=== PATIENT | male | born 1970 | race African-American/Black ===

== ENCOUNTER 2021-10-05 16:12 | Emergency (ER) | payer OTHER, SELFPAY ==
[2021-10-05] VITALS (23 sets, daily range): BP systolic 167–205; BP diastolic 103–131; PULSE 104–130; RESP 14–33; TEMP 37.2; O2SAT 97–100
--- NOTE | ~2021-10-05 | CT_ITS ---
EXAMINATION: CTA chest PE protocol DATE: 10/05/2021 17:52 INDICATION: eval for PE TECHNIQUE: Computed tomography angiography (CTA) of the chest was performed with 100 mL Omnipaque-350 intravenous contrast timed to evaluate the pulmonary arteries. Coronal maximum intensity projection 3D-reconstructions were created by the technologist. The dose-length product (DLP) was 553.14 mGy-cm. Automated exposure control and iterative reconstruction technique were employed. COMPARISON: X-ray chest, same date. FINDINGS: Study quality: Degraded by beam hardening, abnormal anatomy, and respiratory motion, particularly in the left lower lobe such that subsegmental and non-occlusive segmental emboli could be missed. Pulmonary arteries: No pulmonary emboli detected. Thoracic aorta: Normal. Lung parenchyma and airways: Chronic appearing right medial consolidation. Thoracic inlet, axillae and chest wall: Unremarkable. Mediastinum: Normal. Heart and pericardium: Mitral valve/annulus calcifications. Coronary artery calcifications: Absent. Pleura: Unremarkable. Upper abdomen: No significant finding. Bones: No acute osseous finding. Severe thoracic scoliosis. IMPRESSION: Limited examination as described above. Within those constraints, no central or occlusive segmental e mboli detected. Reviewed, dictated and finalized at location K. IMPRESSION: Limited examination as described above. Within those constraints, no central or occlusive segmental emboli detected.
--- NOTE | ~2021-10-05 | XR_ITS ---
EXAMINATION: XR chest 2V Exam Date/Time: 10/05/2021 16:30 CDT HISTORY: CHEST PAIN X 3 DAYS, NO CARDIAC HX NO LUNG HX Comparison: None available. RESULT: Lines, tubes, and devices: Multiple surgical clips project over the mediastinum and right midlung. Lungs and pleura: Clear. Cardiomediastinal silhouette: Unremarkable. Other: No acute osseous or upper abdominal finding. Severe scoliosis. IMPRESSION: No acute cardiopulmonary process. Reviewed, dictated and finalized at location K.
--- NOTE | 2021-10-05 16:14 | ECG_ITS ---
Measurements Intervals [place] Rate: 129 P: 53 NM: 96 QRS: 37 QRSD: 86 T: 127 QT: 253 QTc: 371 Interpretive Statements SINUS TACHYCARDIA WITH SHORT NM INTERVAL EARLY PRECORDIAL R/S TRANSITION LEFT VENTRICULAR HYPERTROPHY AND ST-T CHANGE MINIMAL Q WAVES- HIGH LATERAL LEADS ST-T WAVE ABNORMALITY IN ANTERIOR LEADS- CONSIDER ISCHEMIA ABNORMAL ECG Electronically Signed On 10-05-2021 21:14:38 CDT by Brian Yoo D.O.
[2021-10-05 16:37] LABS: Basophils Absolute Auto 0.1 K/mm3 (0.0-0.1); Basophils Percent Auto 1.1 % (0.2-1.2); Eosinophils Absolute Auto 0.1 K/mm3 (0-0.3); Eosinophils Percent Auto 2.2 % (0-4.4); Hematocrit 40.3 % (42.0-52.0); Hemoglobin 12.9 g/dL (14.0-18.0); Immature Granulocyte Absolute 0.02 K/mm3 (0.00-0.031); Immature Granulocyte Percent A 0.4 % (0-0.5); Lymphocytes Absolute Auto 1.58 K/mm3 (0.9-3.2); Lymphocytes Percent Auto 28.8 % (18.3-44.2); Mean Corpuscular Hemoglobin 30.3 pg (26-34); Mean Corpuscular Volume 94.6 fl (80-100); Mean Platelet Volume 9.8 fl (7.4-10.4); Monocytes Absolute Auto 0.4 K/mm3 (0.1-0.6); Neutrophils Absolute Auto 3.3 K/mm3 (1.3-6.7); Neutrophils Percent Auto 59.5 % (45.5-73.1); Platelet Count Result 307 k/mm3 (150-375); Red Blood Count 4.26 M/mm3 (4.6-6.20); Red Cell Distribution Width 14.6 % (11.5-14.5); White Blood Count 5.5 K/mm3 (4.5-10.0)
[2021-10-05 16:47] LABS: Prothrombin Time 12.6 Seconds (11.1-14.7)
[2021-10-05 16:48] LABS: Partial Thromboplastin Time 30.7 SECONDS (22.3-36.8)
[2021-10-05 16:49] LABS: Alanine Aminotransferase 27 U/L (6-50); Albumin Level 4.7 g/dL (3.5-5.1); Alkaline Phosphatase 78 U/L (38-126); Anion Gap 5 mmol/L (8-16); Aspartate Amino Transferase 31 U/L (17-59); Bilirubin,Total 0.9 mg/dL (0.2-1.3); Blood Urea Nitrogen 13 mg/dL (9-20); Carbon Dioxide 28 mmol/L (22-30); Chloride 105 mmol/L (98-107); Estimated Glomerular Filt Rate > 60; Glucose 121 mg/dL (65-110); Lipase 31 U/L (23-300); Potassium 3.9 mmol/L (3.4-5.0); Sodium 138 mmol/L (137-145)
[2021-10-05 17:01] LABS: Troponin I < 0.012 ng/mL (0.000-0.034)
[2021-10-05] MEDS: ASPIRIN 81 MG CHEWABLE TABLET 324 MG PO (17:23)
[2021-10-05] MEDS: SODIUM CHLORIDE 0.9% IV 1,000 ML 999 ML IV CONT (17:24)
[2021-10-05] MEDS: LORazepam INJ (*CRX) 2 MG/ML VIAL 1 MG IV PUSH (17:27)
--- NOTE | 2021-10-05 17:36 | ED.GENADULT ---
HPI - General Adult General Chief complaint: Chest Pain Stated complaint: BILATERAL LEG PAIN, CP Time Seen by Provider: 10/05/21 17:04 History of Present Illness HPI narrative: 51-year-old male presenting to the emergency department for evaluation of leg pain and associated left-sided chest pain. Patient states over the course of the last month he has been working from home. Patient states he has been sitting on a comfortable chair and sometimes gets leg pains. Patient states last night he was going to bed and he had some left-sided chest pain that ultimately resolved. Patient became concerned after reading the Internet, he was concerned he may be developing a pulmonary embolism. Patient has no prior cardiac history. Patient denies any prior history of PE or DVT Related Data Allergies Allergy/AdvReac Type Severity Reaction Status Date / Time No Known Allergies Allergy Verified 10/05/21 17:22 Review of Systems Review of Systems: CONSTITUTIONAL: Denies fever, chills, or sweats. EYES: Denies visual changes, redness, or discharge. ENT: Denies rhinorrhea, congestion, sore throat, or otalgia. CARDIOVASCULAR: Was unaware of rapid heart rate but did complain of left chest pain RESPIRATORY: Denies cough or dyspnea. GASTROINTESTINAL: Denies abdominal pain, nausea, vomiting, or diarrhea. GENITOURINARY: Denies dysuria or hematuria. SKIN: Denies rash or itching. MUSCULOSKELETAL: Denies back pain, joint pain, or myalgia. NEUROLOGIC: Denies headache, numbness, or weakness. PSYCHIATRIC: Does report some anxiety Exam Narrative: APPEARANCE: Well appearing, no pain, no distress, well-nourished. HEAD: normocephalic, atraumatic. EYES: PERRLA/EOMI, conjunctivae clear. NOSE: Normal no drainage NECK: Supple. No adenopathy, no masses. RESPIRATORY: Airway patent, respirations nonlabored. Clear to auscultation bilaterally, no rales, rhonchi, wheezing. CARDIOVASCULAR: Tachycardia ABDOMINAL: Soft, nontender, nondistended, normal bowel sounds MUSCULOSKELETAL: Moves all extremities. Strength/ROM intact, No edema, No calf tenderness. NEURO: Alert. Cranial nerves II through XII intact. Grossly intact SKIN: Warm, dry. Normal Color Course Course Emergency Course: CTA was negative for pulmonary embolism. Patient's initial troponin was negative. Delta troponin is pending at time of signout to Dr. Kimball. Vital Signs Vital signs: Vital Signs Temperature 37.2 C 10/05/21 16:28 Pulse Rate 130 H 10/05/21 16:28 Respiratory Rate 14 10/05/21 16:28 Blood Pressure 197/125 H 10/05/21 16:28 Pulse Oximetry 98 10/05/21 16:28 Temperature 37.2 C 10/05/21 16:28 Pulse Rate 125 H 10/05/21 17:18 Respiratory Rate 20 10/05/21 17:18 Blood Pressure 196/131 H 10/05/21 17:18 Pulse Oximetry 97 10/05/21 17:21 Oxygen Delivery Room Air 10/05/21 17:21 Medical Decision Making Vital Signs Vital Signs: Vital Signs Temperature 37.2 C 10/05/21 16:28 Pulse Rate 130 H 10/05/21 16:28 Respiratory Rate 14 10/05/21 16:28 Blood Pressure 197/125 H 10/05/21 16:28 Pulse Oximetry 98 10/05/21 16:28 Temperature 37.2 C 10/05/21 16:28 Pulse Rate 125 H 10/05/21 17:18 Respiratory Rate 20 10/05/21 17:18 Blood Pressure 196/131 H 10/05/21 17:18 Pulse Oximetry 97 10/05/21 17:21 Oxygen Delivery Room Air 10/05/21 17:21 Lab Data Lab results reviewed: Yes I reviewed the patient's lab results. Result diagrams: 10/05/21 16:26 10/05/21 16:26 Labs: Lab Results 10/05/21 10/05/21 10/05/21 Range/Units 16:26 16:26 16:26 WBC 5.5 (4.5-10.0) K/mm3 RBC 4.26 L (4.6-6.20) M/mm3 Hgb 12.9 L (14.0-18.0) g/dL Hct 40.3 L (42.0-52.0) % MCV 94.6 (80-100) fl MCH 30.3 (26-34) pg MCHC 32.0 (32-36) g/dl RDW 14.6 H (11.5-14.5) % Plt Count 307 (150-375) k/mm3 MPV 9.8 (7.4-10.4) fl Immature Gran % (Auto) 0.4 (0-0.5) % Neut % (Auto) 59.5 (45.5-73
[2021-10-05 18:01] LABS: SARS-CoV-2 RNA PCR Negative
[2021-10-05 19:40] LABS: Troponin I < 0.012 ng/mL (0.000-0.034)
[2021-10-05] MEDS: hydroCHLOROthiazide 25 MG TABLET PO (20:34)
== END 2021-10-05 21:00 | disposition home or self-care (01) ==
PROVIDERS: Emergency Medicine; Emergency Provider Emergency Medicine
DX: R07.89 Other chest pain (principal); I10 Essential (primary) hypertension; Z20.822 Contact with and (suspected) exposure to COVID-19
CPT/HCPCS: 36415; 71046; 71275; 80053; 83690; 84484; 85025; 85610; 85730; 93005; 96361; 96374; 99284; A9270; C9803; J2060; J7030; Q9967; U0003; U0005

== ENCOUNTER 2024-09-23 14:38 | Emergency (ER) | payer OTHER, BC, SELFPAY ==
[2024-09-23 14:39] VITALS: BP 164/90; PULSE 98; RESP 16; TEMP 36.4; O2SAT 100
--- OUTSIDE RECORDS SUMMARY | 2024-09-23 14:40 | XMS_ITS | Encounter Summary ---
Author Organization [facility] Address [address] [place] [id number] Care Team Providers Care Manager Store Name Role Phone None, Provider Primary Care Provider Unavaila ble Encounter Details Date Type Department Care Team (Late st Contact Info) Description 05/04/2024 MyChart Message Enc [facility] [address] [place] [address] Zamzam Jaramillo, ANP-[facility]. [address] [place] [address] Test Results Social History Tobacco Use Types Packs/Day Years Used Date Smoking Tobacco: Never Smokeless Tobacco: Never Alcohol Use Standard Drinks/Week Comments Not Currently 0 (1 standard drink = 0.6 oz pur e alcohol) Sex and Gender Information Value Date Recorded Sex Assigned at Male 04/16/2024 8:22 AM JACK SPINNER Legal Sex Male 10:38 AM JACK SPINNER Gender Identity Not on file Sexual Orientation Not on file documented as of this encounter Plan of Treatment Upcoming Encounters Date Type Department Care Team (Late st Contact Info) Description 12/28/2024 1:30 PM CDT Office Visit [facility], [address] [place], [place] [phone] Branden Bran MD [facility] [address] [place], [place] [phone] documented as of this encounter Visit Diagnoses Not on filedocumented in this encounter Care Teams Manager Store Relationship Specialty Start Date End Date None, Provider, PCP - General 10/14/21 documented as of this encounter
--- OUTSIDE RECORDS SUMMARY | 2024-09-23 14:40 | XMS_ITS | Clinical Summary ---
Author Organization [facility] Address [facility] [place] [address] Care Team Providers Care Laundry Agent Name Role Phone None, Provider MD Primary Care Provider Unavaila ble Allergies Active Allergy Reactions Criticality Noted Date Comments Lisinopril Cough Low 09/03/2022 Medications losartan (COZAAR) 100 MG tablet Take 1 tablet by mouth once daily 90 tablet 1 5 Active hydroCHLOROthia zide (HYDRODIURIL) 25 MG tablet Take 1 tablet by mouth once daily 90 tablet 1 5 Active amLODIPine (NORVASC) 5 MG tablet Take 1 tablet by mouth once daily 90 tablet 2 5 Active carvedilol (COREG) 25 MG tablet Take 1 tablet by mouth twice daily 180 tablet 1 5 Active carvedilol (COREG) 25 MG tablet Take 1 tablet by mouth twice daily 180 tablet 2 4 09/13/19 25 Discontinued hydroCHLOROthia zide (HYDRODIURIL) 25 MG tablet Take 1 tablet by mouth once daily 90 tablet 2 4 09/03/19 25 Discontinued amLODIPine (NORVASC) 5 MG tablet Take 1 tablet by mouth once daily 90 tablet 2 4 09/06/19 25 Discontinued losartan (COZAAR) 100 MG tablet Take 1 tablet by mouth once daily 90 tablet 1 4 08/30/19 25 Discontinued Active Problems Problem Noted Date Diagnosed Date Primary hypertension 10/21/2021 Family History Medical History Relation Comments Stent Cardiac Father Relation Status Comments Father Alive Mother Alive Social History Tobacco Use Types Packs/Day Years Used Date Smoking Tobacco: Never Smokeless Tobacco: Never Tobacco Cessation:Counseling Given: Not Answered Alcohol Use Standard Drinks/Week Comments Not Currently 0 (1 standard drink = 0.6 oz pur e alcohol) Sex and Gender Information Value Date Recorded Sex Assigned at Male 04/16/2024 8:22 AM AUTO TECHNICIAN MECHANIC Legal Sex Male 10:38 AM AUTO TECHNICIAN MECHANIC Gender Identity Not on file Sexual Orientation Not on file Last Filed Vital Signs Vital Sign Reading Time Taken Comments Blood Pressure 154/86 06/22/2024 12:56 PM CDT Pulse 95 06/22/2024 12:56 PM CDT Temperature 37.2 C (99 F) 10/15/2021 4:07 AM CDT Respiratory Rate 22 10/15/2021 5:02 AM CDT Oxygen Saturation 95% 06/22/2024 12:56 PM CDT Inhaled Oxygen Concentration - - Weight 102.1 kg (225 lb) 06/22/2024 12:56 PM CDT Height 177.8 cm (5' 10) 06/22/2024 12:56 PM CDT Body Mass Index 32.28 06/22/2024 12:56 PM CDT Plan of Treatment Upcoming Encounters Date Type Department Care Team (Late st Contact Info) Description 12/28/2024 1:30 PM CDT Office Visit [facility], [address] [place], [place] [phone] Branden Bran MD [facility] [address] [place], [place] [phone] Health Maintenance Due Date Last Done Comments Colorectal Cancer Screening Colonoscopy (10 Years) 1971 Annual Physical 09/28/1974 Hepatitis C 09/28/1989 DTaP, Tdap and Td Vaccines ( 1 - Tdap) 09/28/1990 Hepatitis B Vaccines (1 of 3 - 19+ 3-dose series) 09/28/1990 Pneumococcal Vaccine: 50+ Years (1 of 2 - PCV) 09/28/1990 Zoster Vaccines (1 of 2) 09/28/2021 COVID-19 Vaccine (3 - 2023-2 5 season) 2023 11/10/2020, 10/20/2020 Meningococcal B Vaccine Aged Out No l onger eligible based on patient's age to complete this topic Meningococcal Vaccine Aged Out No padmini eugenia eligible based on patient's age to complete this topic RSV Immunizations Under 20 Months Aged Out No longer eligible b ased on patient's age to complete this topic Insurance R Care Teams Laundry Agent Relationship Specialty Start Date End Date None, Provider, PCP - General 10/14/21
--- OUTSIDE RECORDS SUMMARY | 2024-09-23 15:14 | XMS_ITS | Encounter Summary ---
Author Organization [facility] Address [address] [place] [address] Care Team Providers Care Oracle Business Analyst Name Role Phone None, Provider Primary Care Provider Unavaila ble Encounter Details Date Type Department Care Team (Late st Contact Info) Description 05/04/2024 MyChart Message Enc [facility] [address] [place] [address] Zamzam Jaramillo, ANP-[facility]. [address] [place] [address] Test Results Social History Tobacco Use Types Packs/Day Years Used Date Smoking Tobacco: Never Smokeless Tobacco: Never Alcohol Use Standard Drinks/Week Comments Not Currently 0 (1 standard drink = 0.6 oz pur e alcohol) Sex and Gender Information Value Date Recorded Sex Assigned at Male 04/16/2024 8:22 AM SOFT SHOE DANCER Legal Sex Male 10:38 AM SOFT SHOE DANCER Gender Identity Not on file Sexual Orientation Not on file documented as of this encounter Plan of Treatment Upcoming Encounters Date Type Department Care Team (Late st Contact Info) Description 12/28/2024 1:30 PM CDT Office Visit [facility], [address] [place], [place] [phone] Branden Bran MD [facility] [address] [place], [place] [phone] documented as of this encounter Visit Diagnoses Not on filedocumented in this encounter Care Teams Oracle Business Analyst Relationship Specialty Start Date End Date None, Provider, PCP - General 10/14/21 documented as of this encounter
--- OUTSIDE RECORDS SUMMARY | 2024-09-23 15:14 | XMS_ITS | Clinical Summary ---
Author Organization [facility] [place] [address] Care Team Providers Care Blind Slat Stapling Machine Operator Name Role Phone None, Provider MD Primary [...] Sex Assigned at Male 04/16/2024 8:22 AM CANTEEN OPERATOR Legal Sex Male 10:38 AM CANTEEN OPERATOR Gender Identity Not on file Sexual Orientation [...] PM CDT Office Visit [facility], [address] [place], [place] [phone] Branden Bran MD [facility]., [address] [place], [place] [phone] Health Maintenance Due Date Last Done Comments [...] complete this topic Insurance R Care Teams Blind Slat Stapling Machine Operator Relationship Specialty Start Date End Date None, Provider, PCP - General 10/14/21
[2024-09-23] MEDS: LIDOCAINE 1% LOCAL INJ 10 ML VIAL INFILTRATE (15:29)
[2024-09-23] MEDS: TETANUS,DIPHTHERIA,AC PERTUSSIS ADULT (0.5 ML) BOOSTRIX IM (15:30)
--- NOTE | 2024-09-23 16:14 | ED_ITS ---
HPI - Wound/Laceration General Chief Complaint: Wound/Laceration Stated Complaint: L INDEX FINGER LAC Time Seen by Provider: 09/23/24 14:59 Source: patient Mode of arrival: ambulatory Limitations: no limitations History of Present Illness HPI narrative: Patient is a 53-year-old male who presents the ED with report of a laceration to his left 2nd digit. Patient reports he with growing at his sister's house when he accidentally pinched/cut his finger on the metal tongs. Seemed a laceration to left 2nd digit finger pad. No other injuries. Denies numbness. Tetanus unknown. Related Data Allergies Allergy/AdvReac Type Severity Reaction Status Date / Time No Known Allergies Allergy Verified 10/05/21 17:22 Review of Systems Review of Systems: All systems reviewed & are unremarkable except as noted in HPI. All systems reviewed & are unremarkable except as noted in HPI and below Exam Narrative: GENERAL: Well appearing, well-nourished, non-toxic, in no acute distress. HEAD: Normocephalic, atraumatic. RESPIRATORY: Airway patent, respirations nonlabored. CARDIOVASCULAR: Regular rate and rhythm. Radial pulses strong and easily palpable. MUSCULOSKELETAL: Moves all extremities. No gross deformities. SKIN: Warm, dry, normal color. Approximately 1.5 cm flap laceration to finger pad of left 2nd digit. Minimal active bleeding. Sensation intact. Capillary refill intact. NEURO: A&O X3. Speech clear. PSYCHIATRIC: Appropriate mood and affect. Normal interaction. Course Vital Signs Vital signs: Vital Signs Temperature 97.6 F 09/23/24 14:39 Pulse Rate 98 09/23/24 14:39 Respiratory Rate 16 09/23/24 14:39 Blood Pressure 164/90 H 09/23/24 14:39 Pulse Oximetry 100 09/23/24 14:39 Oxygen Delivery Room Air 09/23/24 14:39 Temperature 97.6 F 09/23/24 14:39 Pulse Rate 98 09/23/24 14:39 Respiratory Rate 16 09/23/24 14:39 Blood Pressure 164/90 H 09/23/24 14:39 Pulse Oximetry 100 09/23/24 14:39 Oxygen Delivery Room Air 09/23/24 14:39 Procedures Laceration Laceration 1: Date: 09/23/24 Time: 16:20 Site: hand (2nd digit) Side (If applicable): left Size (cm): 2 Description: linear and flap Depth: simple, single layer Local Anesthetic: other anesthetic (digital block) Pre-repair: wound explored and irrigated ====== Skin Level ====== Skin layer closed with: nylon Size (cm): 4-0 Number of sutures: 7 Technique: simple, interrupted ====== Subcutaneous Layer ====== ====== Muscle Layer ====== ====== Tendon Layer ====== Nerve Block Nerve Block 1: Nerve block date: 09/23/24 Nerve block time: 16:14 Time out performed: Yes Local Anesthetic: lidocaine 1% Amount of anesthesia used (mL): 5 Side: left Nerve Blocks: digital (2nd digit) Procedure Successful: Yes Patient Tolerated Procedure: well and no complications Complications: none MDM - Wound/Laceration MDM Narrative Medical decision making narrative: Digital nerve block performed. Laceration repaired without complications. Tetanus updated in the ED. Patient given wound care instructions and reasons to return. Discharged in stable condition. Medical Records Attestation: I reviewed the patient's medical records. Discharge Plan Discharge Clinical Impression: Laceration of finger of left hand Patient Disposition: Home Condition: Stable Instructions: Antibiotic Form, Care For Your Stitches (ED), Laceration (ED) Additional Instructions: Return to the ED or visit an urgent care or your PCP for follow-up and wound check/suture removal in 10 to 14 days. Keep the wound as dry as possible for 24 hours. You may remove the bandage after 24 hours and wash with simple soap and water, but do not scrub. Return to the ED if you experience uncontrolled bleeding, fever, chills, pus-like drainage, or redness/swelling/warmth surrounding the wound, as these could be signs of an infection. Patient Language: Citizen Of [place] Prescriptions: No Action hydrochlorothiazide 25 mg tablet 25 mg PO DAILY 30 Days Qty: 30 0RF Follow-up/Referrals: PHYSICIAN,TALENT ACQUISITION PARTNER [Primary Care Provider] - Venancio Bellamy MD [Physician] - (PRIMARY CARE) Time of Disposition: 16:21
[2024-09-23 16:56] VITALS: BP 151/90; PULSE 90; RESP 18; TEMP 36.2; O2SAT 99
== END 2024-09-23 16:57 | disposition home or self-care (01) ==
PROVIDERS: Emergency Provider Physician Assistant
DX: S61.211A Laceration without foreign body of left index finger without damage to nail, initial encounter (principal); W23.0XXA Caught, crushed, jammed, or pinched between moving objects, initial encounter; Z23 Encounter for immunization
CPT/HCPCS: 12001; 90471; 90715; 99282; J2003

== ENCOUNTER 2024-10-08 08:14 | Emergency (ER) | payer OTHER, BC, SELFPAY ==
[2024-10-08 08:20] VITALS: BP 192/109; PULSE 112; RESP 18; TEMP 37; O2SAT 100
--- NOTE | 2024-10-08 08:40 | ED_ITS ---
HPI - Wound/Laceration General Chief Complaint: Wound/Laceration Stated Complaint: stiches removed Time Seen by Provider: 10/08/24 08:25 Source: patient and RN notes reviewed Mode of arrival: ambulatory Limitations: no limitations History of Present Illness HPI narrative: 54-year-old male presents Express Care needing suture removal. Patient had stitches placed to the left index finger approximately 16 days ago. Patient has been keeping the wound covered and moist with antibiotic ointment. Patient denies any concerns for infection, numbness or tingling, or any issues his finger. Patient says he has [address] Related Data Home Medications ?Medication ?Instructions ?Recorded ?Confirmed ?Last Taken ?Type amlodipine 5 mg tablet mg 10/08/24 Unknown History carvedilol 25 mg tablet mg 10/08/24 Unknown History losartan 100 mg tablet mg 10/08/24 Unknown History Allergies Allergy/AdvReac Type Severity Reaction Status Date / Time No Known Allergies Allergy Verified 10/08/24 08:16 Review of Systems Review of Systems: CONSTITUTIONAL: Denies fever, chills, or sweats. EYES: Denies visual changes, redness, or discharge. ENT: Denies rhinorrhea, congestion, sore throat, or otalgia. CARDIOVASCULAR: Denies chest pain, palpitations, or edema. RESPIRATORY: Denies cough or dyspnea. GASTROINTESTINAL: Denies abdominal pain, nausea, vomiting, or diarrhea. GENITOURINARY: Denies dysuria or hematuria. SKIN: Denies rash or itching. Positive for wound and sutures. MUSCULOSKELETAL: Denies back pain, joint pain, or myalgia. NEUROLOGIC: Denies headache, numbness, or weakness. PSYCHIATRIC: Denies anxiety or depression. All other systems reviewed are negative, except as documented in HPI. PMFSH Comments At the time of my signature, I reviewed and agree with the nursing past medical, surgical, social, and family history. There is no relevant family history pertinent to the patient complaint. Exam Narrative: GENERAL: This is a well-nourished, well-developed adult, in no apparent distress. They are non ill-appearing, nontoxic appearing. HEAD: normocephalic, atraumatic. EYES: Sclera clear/white. Conjunctiva normal. Vision is grossly intact. Extraocular movements intact EARS: External ears normal, Hearing grossly intact. NOSE: External nose normal THROAT: Mucous membranes moist NECK: Neck supple, non-tender CARDIOVASCULAR: Regular rate and rhythm RESPIRATORY: Respiratory rate normal, respiratory effort nonlabored, no respir atory distress SKIN: Left index finger: [address] to the anterior distal end of the finger. Wound is macerated. Redness, swelling, drainage, or pain. Normal sensation. Capillary refill less than 2 seconds. No induration area of fluctuance. NEURO: awake, alert, and oriented to person, place and time. There were no obvious focal neurologic abnormalities. EXTREMITIES: No joint tenderness, effusion, or edema noted. ss. Course Course Emergency Course: Portions of this record may have been created with voice recognition software Level of Care: Express Care Visit Vital Signs Vital signs: Vital Signs Temperature 98.6 F 10/08/24 08:20 Pulse Rate 112 H 10/08/24 08:20 Respiratory Rate 18 10/08/24 08:20 Blood Pressure 192/109 H 10/08/24 08:20 Pulse Oximetry 100 10/08/24 08:20 Oxygen Delivery Room Air 10/08/24 08:20 Temperature 98.6 F 10/08/24 08:20 Pulse Rate 112 H 10/08/24 08:20 Respiratory Rate 18 10/08/24 08:20 Blood Pressure 192/109 H 10/08/24 08:20 Pulse Oximetry 100 10/08/24 08:20 Oxygen Delivery Room Air 10/08/24 08:20 Reviewed MDM - Wound/Laceration MDM Narrative Medical decision making narrative: Seven sutures removed successfully. Wound appears macerated. Nonadherent bandage applied over wound. Advised patient to take the bandage off when he is not doing activities involving his hand to to aerate the wound. Will prescribe a course of cephalexin since the wound is open and macerated. Will Refer patient to hand specialist for wound recheck. Patient's blood pressure is elevated today, patient is asymptomatic, patient says he takes his blood pressure medications around 930 in the morning. Advised patient go home and take his blood pressure medications. Discussed physical exam findings. Advised supportive measures and signs/symptoms to go to the ER. Pt is appropriate for outpt treatment and f/u. Differential Diagnosis Differential diagnosis: Likely laceration, abscess and avulsion of skin Critical Care Time Critical Care Time Critical Care Time: No Discharge Plan Discharge Clinical Impression: Encounter for removal of sutures Patient Disposition: Home Condition: Stable Instructions: Antibiotic Form, Acute Wounds (ED) Additional Instructions: Wash the wound daily with mild soap and water. Do not soak or scrub the wound. The apply antibiotic ointment or any Vaseline to the wound. Please keep it dry and covered with a non adherent dressing such as the Band-Aid. Take the antibiotics as directed. Avoid dirty water to the wound is completely closed and healed. Follow-up with hand specialist in 3-5 days for wound recheck. Developed worsening redness, swelling, green/yellow drainage, pain, fevers, or any other concerns go to the ER immediately. Patient Language: Mongolian Prescriptions: New cephalexin 500 mg capsule 500 mg PO Q6H 7 Days Qty: 28 0RF No Action carvedilol 25 mg tablet amlodipine 5 mg tablet losartan 100 mg tablet hydrochlorothiazide 25 mg tablet 25 mg PO DAILY 30 Days Qty: 30 0RF Follow-up/Referrals: Sánchez Barroso MD [Physician] - PHYSICIAN,SIGNAL WIRER [Primary Care Provider] - Time of Disposition: 08:38
== END 2024-10-08 08:49 | disposition home or self-care (01) ==
DX: Z48.02 Encounter for removal of sutures (principal); Z79.899 Other long term (current) drug therapy
CPT/HCPCS: 99213; G0463